=== PATIENT | female | born 1985 | race American Indian/Alaskan Native ===

== ENCOUNTER 2016-07-19 02:08 | Inpatient (IN) | payer MEDICAID ==
--- NOTE | 2016-07-19 03:04 | OBADHP ---
Datetime: 07/19/2016 02:38 Admit Comment, IP Provider: 31 y.o. G4 3003, LMP unsure; VIKAS 07/19/16, EGA 40 weeks, SROM 0100 hours - clear. (+) AFM; mild vaginal spotting with ROM; (+) occ CTX x weeks. provider: Dr. Sonal giron; course: essentially unremarkable; S/P treatment for sinus infection earlier in P Ob: x 3: 2010, male, 7lb 14oz, [facility]. 2012, female, 7lb 14oz, [place]. 2014, m shantanu, 9lb, [facility]; no GDM; no complications P TOBACCO DIPPER: 11 x monthly x 6. 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 (+) H/O HPV; (+) 2006, abnl Pap, S/P colpo - no further treatment needed. 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 x 7 years. Unemployed. Fam Hx: Mother alive 50s y.o. - thyroid disorder. Father alive 50s - no med issues. MGM - DM; one mat aunt - Breast cancer P.E.: as above. WD in NAD. Awake, alert, oriented to time, person and place. Pleasant and cooperat mallorie. Assessment: 31 yo P3, 40 weeks, SROM, light meconium. GBS (-). Category 1 tracing. D/W pitocin aug mentation. Currently, declines pain medications. Clinically stable. Plan: 1) Admit 2) NPO 3) IVFs 4) Continuous EFM 5) Admission labs 6) Pitocin 7) Anticipate vaginal delivery - as per, and discussed with, Dr. Mina Pelvic Type - PN: Adequate Extremities - PN: Normal Abdomen - PN: Normal Back - PN: Normal Breast - PN: Not Done Lungs - PN: Normal Heart - PN: Normal Thyroid - PN: Not Done Neurologic - PN: Normal HEENT - PN: Normal General - PN: Normal Weight - Estimated: 3859 Presentation-Admit: Vertex FHR - Baseline A Provider: 140 Amniotic Fluid Color, Provider: Meconium, Light Membranes, Provider: Ruptured Contraction Comments Provider: irregular Comments, ACOG Physical Exam: Skin: warm, dry, intact HEENT: full ROM Lungs: CTA bilaterally Cardiac: RRR, normal S1, S2 Abdomen: Gravid. Soft. Fundal height 40 cm : perineum wet. Bed covering noted for lightly stained meconium liquor Extremities: no calf tenderness , cyanosis or edema All other systems reviewed and are negative. Gestation - Est Wks by US: 40.0 Vital Signs Provider: Reviewed NICHD Variability Prov Fetus A: Moderate 6-25bpm NICHD Accel Fetus A IP Provider: 15X15 FHR Category Provider Fetus A: Category I NICHD Decel Fetus A IP Provider: None Dilatation, Provider: 4 Effacement, Provider: 50 Station, Provider: -3 Genitourinary Exam: Normal DTRs - PN: Not Done Datetime: 06/05/2016 12:54 IP Chief Complaint Other: Diarrhea; vomiting IP Chief Complaint: Other IP Adm Impression: , intrauterine IP Admit Plan: Observation/Evaluation Datetime: 04/30/2016 04:13 IP Adm Impression Other: Reactive NST.
[2016-07-19 03:09] VITALS: BMI 35.9
[2016-07-19] MEDS ORDERED: Lactated Ringer's 1,000 ML IV SCH (03:15)
[2016-07-19 03:27] LABS: BASO % 0.4 % (0.0-2.0); EOS # 0.1 K/uL (0.0-0.7); EOS % 1.6 % (0.0-4.0); HEMATOCRIT 33.8 % (34.0-47.0); LYMPH # 2.3 K/uL (1.0-4.3); MEAN CELL VOLUME 82.2 fL (81.0-99.0); MEAN CORPUSCULAR HGB CONC 34.1 g/dL (33.0-37.0); MEAN PLATELET VOLUME 8.3 fL (7.2-11.7); MONO # 0.7 K/uL (0.0-0.8); MONO % 7.8 % (0.0-10.0); WHITE BLOOD COUNT 9.1 K/uL (4.8-10.8)
[2016-07-19 03:34] LABS: RBC URINE 4 /hpf (0-3); URINE BACTERIA RARE (<OCC); URINE BILIRUBIN NEGATIVE (NEGATIVE); URINE BLOOD 2+ (NEGATIVE); URINE COLOR Yellow (YELLOW); URINE GLUCOSE (UA) NORMAL (Normal); URINE KETONE TRACE mg/dL (NEGATIVE); URINE LEUKOCYTE ESTERASE 1+ Leu/uL (Negative); URINE PROTEIN NEGATIVE (NEGATIVE); URINE UROBILINOGEN NORMAL mg/dL (0.2-1.0); WBC URINE 12 /hpf (0-5)
[2016-07-19 03:39] LABS: CHLORIDE 100 mmol/L (98-107)
[2016-07-19 03:40] LABS: POTASSIUM 3.4 mmol/L (3.6-5.2); SODIUM 138 mmol/L (132-148)
[2016-07-19 03:42] LABS: GFR AFRICAN-AMERICAN > 60
[2016-07-19 03:43] LABS: ALKALINE PHOSPHATASE 81 U/L (38-126); ALT/SGPT 24 U/L (9-52); AST/SGOT 18 U/L (14-36); BILIRUBIN,TOTAL 0.3 mg/dL (0.2-1.3); BLOOD UREA NITROGEN 10 mg/dL (7-17); CALCIUM 8.7 mg/dl (8.6-10.4); CARBON DIOXIDE 25 mmol/L (22-30); GLUCOSE,RANDOM 83 mg/dL (65-105); TOTAL PROTEIN 6.5 g/dL (6.3-8.3)
[2016-07-19] MEDS ORDERED: Oxytocin 30 UNIT 500 ML IV PRN (04:00)
--- NOTE | 2016-07-19 05:45 | OBPN ---
Datetime: 07/19/2016 05:41 IP Progress Impression: Normal progression of labor; Reassuring heart rate; Rupture of membran es IP Procedures: Sterile Vag Exam IP Progress Plan: Continue present management; Augmentation Contraction Comments Provider: q 3-4 FHR - Baseline A Provider: 140s Gestation - Est Wks by US: 40.0 Presentation-Admit: Vertex IP Progress Note Comment: IUP at 40wks in labor Plan: Continue monitoring the progress of labor. NICHD Accel Fetus A IP Provider: 15X15 FHR Category Provider Fetus A: Category I NICHD Variability Prov Fetus A: Moderate 6-25bpm Dilatation, Provider: 4 Effacement, Provider: 70 Station, Provider: -2 NICHD Decel Fetus A IP Provider: None Datetime: 07/19/2016 02:38 Membranes, Provider: Ruptured Amniotic Fluid Color, Provider: Meconium, Light Weight - Estimated: 3859 Vital Signs Provider: Reviewed
[2016-07-19] MEDS ORDERED: Bupivacaine HCl 0.25% PF (10 ml) Inj ONE (08:45)
--- NOTE | 2016-07-19 09:17 | OBDS ---
MATERNAL INFORMATION Provider Comments: Uncomplicated spontaneous vaginal delivery of a viable with scores o f 9 and 9. LABOR SUMMARY EDC: 07/19/2016 00:00 No. Babies in Womb: 1 LABOR INFORMATION Onset of Labor: 07/19/2016 01:00 Group B Beta Strep: Negative MEMBRANES Membranes Rupture Method: Spontaneous Rupture of Membranes: 07/19/2016 01:00 Amniotic Fluid Color: Light Meconium Amniotic Fluid Amount: Moderate Amniotic Fluid Odor: Normal VAGINAL DELIVERY Episiotomy: None Laceration Extension: N/A Laceration Type: None IDENTIFICATION/MEDS BABY A ID Band Number: [id number] Sensor Number: [id number]
[2016-07-19] MEDS: Multiple Vitamins Tab PO SCH (12:19)
[2016-07-20 08:23] LABS: HEMATOCRIT 31.8 % (34.0-47.0); MEAN CELL VOLUME 82.6 fL (81.0-99.0); MEAN CORPUSCULAR HGB CONC 32.7 g/dL (33.0-37.0); MEAN PLATELET VOLUME 8.2 fL (7.2-11.7); RED CELL DISTRIBUTION WIDTH 14.8 % (11.5-14.5); WHITE BLOOD COUNT 8.6 K/uL (4.8-10.8)
[2016-07-20] MEDS: Multiple Vitamins Tab PO SCH (09:34)
[2016-07-20] MEDS ORDERED: Influenza Virus Vaccine 45 mcg/0.5 ml Syr IM ONE (17:18)
--- NOTE | 2016-07-20 22:38 | OBPPN ---
Datetime: 07/20/2016 22:33 PP Pain Prov: Within normal limits PP Nausea Prov: Denies PP Flatus Prov: Yes PP Breasts Prov: Normal PP Heart Prov: Normal PP Lungs Prov: Normal PP Abdomen/Uterus Prov: Normal PP Lochia Prov: Normal PP Vulva/Perineum Prov: Normal PP CVA Tenderness Prov: Normal PP Extremities Prov: Normal PP Progress Prov: Normal PP Comments Phys Exam Prov: Abd: soft,NT, BS- present Uterus - firm PP Impression Prov: Normal progression PP Plan Prov: Continue present management PP Progress Note Prov: S/P , PPD #1 Clinically Stable. Plan: Continue care Vital Signs Provider PP: Reviewed
[2016-07-21 00:12] VITALS: RESP 20; TEMP 98.4
[2016-07-21 08:17] VITALS: BP 110/71; PULSE 83; O2SAT 98
[2016-07-21] MEDS: Multiple Vitamins Tab PO SCH (09:25)
--- NOTE | 2016-07-21 22:39 | OBPPN ---
Datetime: 07/21/2016 07:59 PP Pain Prov: Within normal limits PP Pain Prov comment: Complains of soreness at Epidural Site PP Nausea Prov: Denies PP Flatus Prov: Yes PP BM Prov: Yes PP Breasts Prov: Normal PP Heart Prov: Normal PP Lungs Prov: Normal PP Abdomen/Uterus Prov: Normal PP Lochia Prov: Normal PP Vulva/Perineum Prov: Normal PP CVA Tenderness Prov: Normal PP Extremities Prov: Normal PP C/S Incision Prov: Not Applicable PP Progress Prov: Normal PP Comments Phys Exam Prov: Abdomen uterus firm and contracted. Epidural site WNL. PP Impression Prov: Normal progression PP Plan Prov: Discharge PP Progress Note Prov: Stable. Discharge home. Follow up 6 weeks. Vital Signs Provider PP: Reviewed; Within Normal Limits
--- NOTE | 2016-07-21 22:42 | OBDCSUM ---
Datetime: 07/21/2016 08:22 Discharge Diagnosis, Provider: Term Delivered Discharge Comment, Provider: S/P , Clinically Stable Discharge Diagnosis Prov Other: S/P , Clinically Stable
== END 2016-07-21 12:20 | disposition home or self-care (01) | DRG 373 ==
LOC: C.EROB 02:08 → C.4D 02:50 → C.4M 10:35
PROVIDERS: ADMIT Obstetrics & Gynecology; ATTEND Obstetrics & Gynecology
PROC: 10E0XZZ Delivery of Products of Conception, External Approach (ICD-10-PCS; principal; 2016-07-19)
DX: O77.0 Labor and delivery complicated by meconium in amniotic fluid (principal); Z3A.40 40 weeks gestation of pregnancy; Z37.0 Single live birth

== ENCOUNTER 2017-11-18 13:33 | Emergency (ER) | payer MEDICAID ==
[2017-11-18 13:33] VITALS: BMI 35.9
[2017-11-18 13:46] VITALS: TEMP 98.4; O2SAT 99
--- NOTE | 2017-11-18 16:48 | C.PDOC ---
Time Seen by Provider: 11/18/17 16:18 Chief Complaint (Nursing): Chest Pain History Per: Patient Onset/Duration Of Symptoms: Days (1) Current Symptoms Are (Timing): Still Present Severity: Moderate Location Of Discomfort (Image): 1 - Pain Quality: "Pain" Associated Symptoms: denies: Nausea, Dyspnea, Diaphoresis, Syncope Exacerbating Factors: Turning, Movement, Deep Breathing Additional History Per: Prior Records Past Medical History Reviewed: Historical Data, Nursing Documentation, Vital Signs Vital Signs: Last Vital Signs Temp 98.4 F 11/18/17 13:43 Pulse 70 11/18/17 16:17 Resp 17 11/18/17 16:17 BP 114/71 11/18/17 16:17 Pulse Ox 99 11/18/17 16:49 - Medical History PMH: No Chronic Diseases Surgical History: No Surg Hx - [facility] Procedures DELIVERY OF PRODUCTS OF CONCEPTION, EXTERNAL APPROACH (07/19/16) Family History: States: Unknown Family Hx - Social History Hx Tobacco Use: No Hx Alcohol Use: No Hx Substance Use: No - Immunization History Hx Influenza Vaccination: No Review Of Systems Except As Marked, All Systems Reviewed And Found Negative. Constitutional: Negative for: Fever, Weakness Respiratory: Negative for: Cough, Shortness of Breath, Hemoptysis Gastrointestinal: Negative for: Nausea, Vomiting, Abdominal Pain Musculoskeletal: Negative for: Neck Pain, Back Pain, Leg Pain Skin: Negative for: Rash Neurological: Negative for: Weakness, Numbness Physical Exam - Physical Exam Appears: Non-toxic, No Acute Distress Skin: Normal Color, Warm, Dry, No Rash Head: Atraumatic, Normacephalic Eye(s): bilateral: Normal Inspection, PERRL, EOMI Neck: Normal ROM, Supple Chest: Symmetrical, No Deformity, No Ecchymosis, No Subcutaneous Emphysema, Other (Pain is reproducible on movement of LUE) Cardiovascular: Rhythm Regular Respiratory: Normal Breath Sounds, No Accessory Muscle Use Gastrointestinal/Abdominal: Soft, No Tenderness Back: No CVA Tenderness Extremity: Normal ROM, No Pedal Edema, No Calf Tenderness Extremity: Bilateral: Normal Color And Temperature Neurological/Psych: Oriented x3, Normal Motor, Normal Sensation ED Course And Treatment ECG: Interpreted By Me, Viewed By Me ECG Rhythm: Sinus Rhythm, Nonspecific Changes ECG Interpretation: No Acute Changes Rate From EC O2 Sat by Pulse Oximetry: 99 Pulse Ox Interpretation: Normal - Radiology CXR: Viewed By Me, Read By Radiologist CXR Interpretation: Yes: No Acute Disease Reassessment Condition: Improved Medical Decision Making Medical Decision Making: PERC rule negative Disposition Counseled Patient/Family Regarding: Studies Performed, Diagnosis, Need For Followup, Rx Given - Disposition Referrals: Yadiel De León MD [Medical Doctor] - Disposition: HOME/ ROUTINE Disposition Time: 17:16 Condition: STABLE Additional Instructions: Follow up with your doctor for further evaluation and treatment. Return to the ER if you develop shortness of breath, dizziness, worsening of symptoms or if you have any other concerns. Prescriptions: Ibuprofen [Motrin Tab] 600 mg PO TID PRN #30 tab PRN Reason: Pain, Moderate (4-7) Instructions: Chest Pain That Is Not Caused by the Heart (DC) Forms: e-Tag (Polish) - Clinical Impression Clinical Impression: Chest pain, non-cardiac
--- NOTE | 2017-11-18 17:02 | RAD ---
Date of service: 11/18/2017 HISTORY: Left chest pain COMPARISON: No prior. TECHNIQUE: Chest PA and lateral FINDINGS: LUNGS: No active pulmonary disease. PLEURA: No significant pleural effusion identified. No pneumothorax apparent. CARDIOVASCULAR: Normal. OSSEOUS STRUCTURES: No significant abnormalities. VISUALIZED UPPER ABDOMEN: Normal. OTHER FINDINGS: None. IMPRESSION: No active disease.
[2017-11-18 17:06] VITALS: BP 114/71; PULSE 70; RESP 17
--- NOTE | 2017-11-19 17:48 | CARD ---
APPROVED REPORT Date of service: 11/18/2017 EKG Measurement Heart [id number] <Conclusion> Normal sinus rhythm Possible Left atrial enlargement Borderline ECG
== END 2017-11-18 17:26 | disposition home or self-care (01) ==
LOC: C.ER 13:33
DX: R07.89 Other chest pain (principal)